=== PATIENT | female | born 1995 | race Caucasian/White ===

== ENCOUNTER 2024-09-22 07:19 | Day surgery (SDC) | payer OTHER ==
[~2024-09-22] VITALS: Ht 165.1 cm; Wt 122.0 kg
[~2024-09-22 07:19] MED LIST: IBLOOD GLUCOSE TEST STRIP 1 EA TEST VI PRN; LACTATED RINGER'S 1,000 ML IV SCH; LIDOCAINE HCL 1% 5 ML SDV INJ ONE; PROVERA5 MG PO
[2024-09-22 07:35] VITALS: BP 127/72
--- NOTE | 2024-09-22 07:55 | NUR ---
MOTHER PETR HERE WITH PT AND AUNT. GOING TO [facility] THEN RETURN.
[2024-09-22] MEDS ORDERED: KETOROLAC TROMETHAMINE 30 MG/ML VIAL ONE (09:05)
[2024-09-22] MEDS ORDERED: DEXAMETHASONE SOD PHOS 4 MG/ML VIAL ONE (09:05)
[2024-09-22] MEDS ORDERED: ROCURONIUM BROMIDE 50 MG/5 ML SYR ONE ×2 (09:05→09:59)
[2024-09-22] MEDS ORDERED: LIDOCAINE HCL 2% 5 ML SDV ONE (09:05)
[2024-09-22] MEDS ORDERED: fentaNYL citrate 100 MCG/2 ML VIAL ONE ×2 (09:05→10:19)
[2024-09-22] MEDS ORDERED: MIDAZOLAM HCL 2 MG/2 ML VIAL ONE (09:05)
[2024-09-22] MEDS ORDERED: LIDOCAINE HCL 1% 30 ML SDV ONE (09:08)
[2024-09-22] MEDS ORDERED: GLYCOPYRROLATE 1 MG/5 ML MDV ONE (09:59)
--- NOTE | 2024-09-22 11:38 | NUR ---
09/22/24 1138 Luisa Saba LE 1125: PT ARRIVES TO PACU. REPORT RECIEVED FROM DIRECTOR OF CURRICULUM AND HIDE CLEANER. LE 1128: PT WAKES UP AND SITS UP RIGHT, RIPPING HER OXYGEN MASK OFF HER FACE. ORAL AIRWAY IS REMOVED. OXYGEN REPLACED. LE 1134: PT HAS APNEIC ERIOD WITH CORRECTING HERSELF. JAW THRUST PERFOMED AND TAKEN OVER BY MARK Soria RN. PT STARTS TO SNORE WHEN SHE DOZES BACK OFF FOR A FEW MINUTES.
[2024-09-22] MEDS ORDERED: NALOXONE HCL 0.4 MG SYR IV PRN (11:45)
[2024-09-22] MEDS ORDERED: FAMOTIDINE 20 MG TAB PO PRN (11:45)
[2024-09-22] MEDS ORDERED: FAMOTIDINE 20 MG/ 2 ML VIAL IV PRN (11:45)
[2024-09-22] MEDS ORDERED: HYDROCODONE/ACETA 5/325 TAB PO PRN (11:45)
[2024-09-22 12:07] VITALS: BP 139/79
--- NOTE | 2024-09-22 12:54 | NUR ---
1207 RETURNED TO ROOM CALL LIGHTGIVEN WATER GIVEN. FAMILY IN ROOM.
[2024-09-22] MEDS ORDERED: SIMETHICONE 80 MG CHEW PO SCH (13:00)
--- NOTE | 2024-09-22 13:13 | NUR ---
PAIN 7/10 AND REQUESTS SECOND PAIN PILL.
[2024-09-22 13:15] VITALS: BP 117/75
--- NOTE | 2024-09-22 13:17 | NUR ---
OFF O2 FOR TRIAL SATS ON RM STAYED 96 AND ABOVE. O2 DCD.
--- NOTE | 2024-09-22 14:02 | NUR ---
1345 UP TO BR VOIDS 100MLS YELLOW URINE. WANTS TO GO HOME.
--- NOTE | 2024-09-22 14:04 | NUR ---
8636 REVIEW OF DC INSTRUCTIONS AND COMPUTER PRINT OUT REVIEWED AND EXPLAINED. NO QUESTIONS. ENC TO REVIEW AT HOME AGAIN AND CALL OFFICE IF QUESTIONS.
[2024-09-22] MEDS ORDERED: SEVOFLURANE 250 ML BTL INH ONE (14:44)
--- NOTE | 2024-09-24 12:51 | PATH ---
[facility] [address], [place] [address] Signed SPECIMEN(S): A BILATERAL FALLOPIAN TUBES AND CYST SPECIMEN SOURCE: A. BILATERAL FALLOPIAN TUBES AND CYST CLINICAL HISTORY: Adnexal mass. Bilateral hydrosalpinx. Ovarian cyst. FINAL PATHOLOGIC DIAGNOSIS: Bilateral fallopian tubes and cyst: - Two segments of benign oviduct and incidental paratubal serous cyst. JVR:gladys MICROSCOPIC EXAMINATION: Histologic sections of all submitted blocks are examined by light microscopy. These findings, together with the gross examination, support the pathologic diagnosis. GROSS DESCRIPTION: The specimen, labeled and designated "Davion IrelandSera, bilateral fallopian tubes and cysts per requisition," is received in formalin and consists of 2 violaceous fallopian tubes with undesignated laterality. The first arbitrarily designated fallopian tube measures 6.6 x 0.9 x 0.8 cm and lacks an attached fimbriated end. The serosal surface is roughened with diffuse adhesions, but no apparent paratubal cysts. The second arbitrarily designated fallopian tube measures 6 x 1 x 1 cm and lacks an attached fimbriated end. The serosal surface is roughened with adhesions. There are no apparent paratubal cysts. The specimens are serially sectioned revealing a pinpoint lumen. Also received is a 3.3 x 2.2 x 1.5 cm disrupted cystic structure. The cyst is pink-purple. There are no apparent papillary excrescences. Patient Case Manager sections are submitted as follows: Cassette Summary: (A1) first fallopian tube, RS (A2) second fallopian tube, RS (A3) cystic structure, RS AA (under the direct supervision of a pathologist) The Gross Description was prepared using a voice recognition system. The report was reviewed for accuracy; however, sound-alike word errors, addition and/or deletions may occur. If there is any PATIENT NAME: SHAYAN IRELAND PATHOLOGY DATE OF : [birth year] REPORT #: [id number] PHYSICIAN: ALEXANDRA PARADA PCP: NO PRIMARY CARE PHYSICIAN REPORT IS CONFIDENTIAL AND NOT TO BE RELEASED WITHOUT AUTHORIZATION [facility] [address], [place] [address] Signed question about this report, please contact Client Services. PERFORMING LABORATORY: Technical component was performed by [facility], [address] [place] [address] (CLIA# [id number]). Professional interpretation was performed by [facility] - [facility], [address] [place] [id number] (CLIA#: [id number]). Diagnostician: Cheng Rondon MD Pathologist Electronically Signed 09/24/2024 Copies: ~ PATIENT NAME: SHAYAN IRELAND PATHOLOGY DATE OF : [birth year] REPORT #: [id number] PHYSICIAN: ALEXANDRA PATHOLOGY PCP: NO PRIMARY CARE PHYSICIAN REPORT IS CONFIDENTIAL AND NOT TO BE RELEASED WITHOUT AUTHORIZATION
== END 2024-09-22 13:50 | disposition home or self-care (01) ==
LOC: DS 07:19 → OPS 07:19 → DS 11:00 → OPS 13:50
PROVIDERS: ATTEND Obstetrics & Gynecology
PROC: 0UT74ZZ Resection of Bilateral Fallopian Tubes, Percutaneous Endoscopic Approach (ICD-10-PCS; principal; 2024-09-22 09:00)
PROC: 0UB04ZZ Excision of Right Ovary, Percutaneous Endoscopic Approach (ICD-10-PCS; 2024-09-22 09:00)
DX: N70.11 Chronic salpingitis (principal); N83.8 Other noninflammatory disorders of ovary, fallopian tube and broad ligament; K66.0 Peritoneal adhesions (postprocedural) (postinfection); Z79.899 Other long term (current) drug therapy
CPT/HCPCS: 00840; J1100; J1885; J2003; J2250; J2405; J2704; J3010; J3490; J7121